=== PATIENT | female | born 1955 | race Caucasian/White ===

== ENCOUNTER → 2019-02-27 | Outpatient (CLI) | payer OTHER ==
[~2019-02-27] MED LIST: DENO60DI SQ; EXCEES PO; QUET25TA74 PO
== END | disposition home or self-care (01) ==
LOC: OIH 09:46
PROVIDERS: ATTEND Family Medicine
DX: Z13.6 Encounter for screening for cardiovascular disorders (principal)
CPT/HCPCS: 75571

== ENCOUNTER → 2021-11-01 | Outpatient (CLI) | payer OTHER ==
[~2021-11-01] MED LIST changes: +QUET25TA36 PO; -QUET25TA74 PO
== END | disposition home or self-care (01) ==
LOC: OIH 07:33
PROVIDERS: ATTEND Family Medicine
DX: Z13.6 Encounter for screening for cardiovascular disorders (principal)
CPT/HCPCS: 75571

== ENCOUNTER → 2024-12-07 | Outpatient (CLI) | payer MEDICARE ==
[~2024-12-07] MED LIST changes: +REGADENOSON 0.4 MG/5 ML PF SYG IVP ONE
--- NOTE | 2024-12-08 14:35 | HMCSR ---
APPROVED REPORT TEST INDICATIONS Chest Pain The imaging protocol used to acquire images was Rest Tc-99m/stress Tc-99m 1 day Consent: The procedure was explained and understood by the patient. Informerd consent was witnessed Emmy Carr [facility] First, low dose rest was performed then high dose stress. RESTING DATA: The resting ekg shows: NSR Rest SPECT myocardial perfusion imaging was performed in supine position minutes following the intra venous injection of 11 mCi of Tc-99 Sestamibi. Time of rest injection: 908 Date: 12/07/2024 PHARMACOLOGIC STRESS: Pharmacologic stress test was performed by injecting regadenoson 0.4 mg IV push followed by the intra venous injection of 30 mCi of Tc-99 Sestamibi. Time of stress injection: 1038 Date: 12/07/2024 Heart Rate at time of stress injection: 63 bpm. The images were gated to evaluate regional wall motion and calculate left ventricular ejection fracti on. STRESS DETAILS Reason for Termination: Infusion complete Stress Symptoms: Chest Heavy Max HR Achieved: 98 bpm % of APMHR Achieved: 76 Max Blood Pressure: 151/72 mmHg Stress ECG: NSR LV PERFUSION Est EF 80% Fixed anteral/septal defect No inducable ischemia
== END | disposition home or self-care (01) ==
LOC: RAH 08:29
PROVIDERS: ATTEND Internal Medicine Interventional Cardiology
DX: R07.9 Chest pain, unspecified (principal)
CPT/HCPCS: 78452; 93017; J2785; A9500 ×2